=== PATIENT | male | born 1940 | race Caucasian/White ===

== ENCOUNTER 2018-01-20 11:31 | Outpatient (CLI) | payer MEDICARE, OTHER | END 2018-01-20 11:32 | disposition home or self-care (01) | DRG 554 | LOC: CONVCARE 11:31 | PROVIDERS: ATTEND Orthopaedic Surgery | DX: M16.12 Unilateral primary osteoarthritis, left hip (principal) | CPT/HCPCS: 73502 ==

== ENCOUNTER 2018-05-05 08:00 | Outpatient (CLI) | payer OTHER, MEDICARE | END 2018-05-05 08:01 | disposition home or self-care (01) | DRG 561 | LOC: CONVCARE 08:00 | PROVIDERS: ATTEND Orthopaedic Surgery | DX: Z47.1 Aftercare following joint replacement surgery (principal) | CPT/HCPCS: 73502 ==

== ENCOUNTER 2018-07-21 11:48 | Outpatient (CLI) | payer OTHER, MEDICARE | END 2018-07-21 11:49 | disposition home or self-care (01) | DRG 561 | LOC: CONVCARE 11:48 | PROVIDERS: ATTEND Orthopaedic Surgery | DX: Z47.1 Aftercare following joint replacement surgery (principal); Z96.642 Presence of left artificial hip joint | CPT/HCPCS: 73502 ==